=== PATIENT | male | born 1965 | race Caucasian/White ===

== ENCOUNTER 2023-11-03 11:11 | Outpatient (CLI) | payer BC | END 2023-11-03 11:12 | disposition home or self-care (01) | LOC: CSHRAD 11:11 | PROVIDERS: ATTEND Internal Medicine Rheumatology | DX: M54.6 Pain in thoracic spine (principal); M47.814 Spondylosis without myelopathy or radiculopathy, thoracic region; M47.812 Spondylosis without myelopathy or radiculopathy, cervical region | CPT/HCPCS: 72072 ==